=== PATIENT | female | born 1985 | race Hispanic/Latino ===

== ENCOUNTER 2024-02-08 02:23 | Emergency (ER) | payer OTHER, MEDICAID, SELFPAY ==
[2024-02-08] VITALS (14 sets, daily range): BP systolic 103–129; BP diastolic 55–69; PULSE 62–90; RESP 13–36; TEMP 36.7; O2SAT 97–100
--- NOTE | 2024-02-08 02:11 | ED.GENADULT ---
HPI - General Adult General Stated complaint: unresponsive x30min
--- NOTE | 2024-02-08 02:12 | ED_ITS ---
HPI - General Adult General Chief complaint: Altered Mental Status Stated complaint: unresponsive x30min History of Present Illness HPI narrative: (history via bedside Nauruan/[place]orese-speaking adult daughter, family declined use of professional medical translation services when offered) 38-year-old female brought in by EMS with altered mental status, patient had dental extraction 4pm today, local anesthetic, no sedation known to have happended with procedure, was discharged on ibuprofen only, while at [facility] cabin patient was walking up the stairs and complained of headache, had some shaking activity of her arms, stated that she felt numbness in her legs. EMS was called. Atypical shaking activity upper and lower extremities reported, no incontinence of urine or stool, no tonic-clonic like shaking activity, eyes closed, glucose 100s noted, no loss of airway, no emesis, maintaining airway. No known drug use. No recent illness symptoms before dental extraction. No medications new, has taken ibuprofen before without similar problems. No known history of shaking episodes, seizures, pseudoseizures, heart problems, adverse medication reactions, per family. No particular social stresses reported from family members. Visiting from home [facility]. Related Data Home Medications Medication Instructions Recorded Confirmed ferrous sulfate 325 mg (65 mg 325 mg PO DAILY 02/08/24 02/08/24 iron) tablet (FeroSul) ibuprofen 600 mg tablet 600 mg PO Q6-8H 02/08/24 02/08/24 Allergies Allergy/AdvReac Type Severity Reaction Status Date / Time No Known Drug Allergies Allergy Verified 02/08/24 02:57 Review of Systems Review of Systems Narrative: Limited by apparent altered mental status, see HPI Exam Narrative Exam Narrative: GENERAL: Well-developed patient, with altered mental status, intermittent atypical shaking/twitching movements upper and lower extermities HEAD: Atraumatic. Normocephalic. EYES: Pupils equal round and reactive. No scleral icterus. No injection or drainage. ENT: Nose without bleeding, purulent drainage. Throat without erythema, tonsillar hypertrophy or exudate. Airway patent. Handles secretions well, NECK: Trachea midline. Non tender CARDIOVASCULAR: Regular rate and rhythm without murmurs, gallops, or rubs. RESPIRATORY: Clear to auscultation. Breath sounds equal bilaterally. No wheezes, rales, or rhonchi. No difficulty with breathing, no use of accessory muscles or abdominal breathing. GASTROINTESTINAL: Abdomen soft, non-tender, nondistended. EXTREMITIES: No edema or joint tenderness. BACK: Nontender without deformity or crepitance. No flank tenderness. NEURO: Atypical intermittent shaking activity, sometimes upper extremities, sometimes lower extremities, not tonic-clonic in nature, asymmetrical, nonsustained, twitching like. Eyes closed, pupils equal, no obvious facial droop, no decorticate or decerebrate posturing. Maintaining airway. SKIN: No rash or erythema of visible areas Initial Vital Signs Initial Vital Signs: Vital Signs Temperature 98.0 F 02/08/24 02:13 Pulse Rate 90 02/08/24 02:13 Respiratory Rate 25 H 02/08/24 02:13 Blood Pressure 123/63 02/08/24 02:13 Pulse Oximetry 100 02/08/24 02:13 Oxygen Delivery Method Room Air 02/08/24 02:13 Course Orders Ordered: Discontinued Medications POTASSIUM CHLORIDE IN WATER (Potassium Cl 10 Meq/100 Ml Veronica) 10 meq in 100 mls @ 100 mls/hr IV Q1H ILIA Stop: 02/08/24 05:14 Last Infusion: 02/08/24 06:23 Dose: Infused Documented By: Infusion: 02/08/24 05:39 Dose: 50 mls/hr Documented By: Admin: 02/08/24 04:59 Dose: 100 mls/hr Documented By: Infusion: 02/08/24 04:45 Dose: Infused Documented By: Admin: 02/08/24 03:25 Dose: 100 mls/hr Documented By: AB Ceftriaxone Sodium 1,000 mg/ (Sodium Chloride) 100 mls @ 200 mls/hr IV NOW ONE Stop: 02/08/24 03:34 Last Infusion: 02/08/24 04:59 Dose: Infused Documented By: Admin: 02/08/24 04:26 Dose: 200 mls/hr Documented By: AB Sodium Chloride (Normal Saline 0.9%) 1,000 mls @ 1,000 mls/hr IV BOLUS ONE Stop: 02/08/24 04:33 Last Infusion: 02/08/24 05:39 Dose: Infused Documented By: Admin: 02/08/24 04:27 Dose: 1,000 mls/hr Documented By: AB Lorazepam (Lorazepam 2 Mg/Ml Inj) 1 mg IV NOW ONE Stop: 02/08/24 02:14 Last Admin: 02/08/24 02:15 Dose: 1 mg Documented By: ROLY Potassium Chloride (Potassium Chloride 20 Meq/15 Ml Udc) 40 meq PO NOW ONE Stop: 02/08/24 05:40 Last Admin: 02/08/24 06:13 Dose: 40 meq Documented By: AB Vital Signs Vital signs: Vital Signs - 8 hr 02/08/24 02:13 02/08/24 03:03 02/08/24 03:40 Temperature 98.0 F Pulse Rate 90 73 68 Respiratory Rate 25 H 18 Blood Pressure 123/63 Pulse Oximetry 100 99 Oxygen Delivery Method Room Air Room Air 02/08/24 03:42 02/08/24 03:42 02/08/24 04:00 Temperature Pulse Rate 71 Respiratory Rate 21 Blood Pressure 114/69 103/58 L Pulse Oximetry 100 Oxygen Delivery Method 02/08/24 04:00 02/08/24 04:30 02/08/24 04:30 Temperature Pulse Rate 66 67 Respiratory Rate 14 14 Blood Pressure 103/64 Pulse Oximetry 97 99 Oxygen Delivery Method 02/08/24 05:00 02/08/24 05:00 02/08/24 05:30 Temperature Pulse Rate 71 70 Respiratory Rate 26 H 17 Blood Pressure 105/55 L Pulse Oximetry 99 98 Oxygen Delivery Method 02/08/24 05:31 02/08/24 05:31 02/08/24 06:00 Temperature Pulse Rate 69 62 Respiratory Rate 36 H 13 Blood Pressure 123/67 Pulse Oximetry 99 98 Oxygen Delivery Method Room Air 02/08/24 06:00 02/08/24 06:30 02/08/24 06:30 Temperature Pulse Rate 66 Respiratory Rate 15 Blood Pressure 110/57 L 107/59 L Pulse Oximetry 99 Oxygen Delivery Method 02/08/24 07:00 02/08/24 07:01 02/08/24 07:01 Temperature Pulse Rate 78 82 Respiratory Rate 14 20 Blood Pressure 129/60 Pulse Oximetry 98 98 Oxygen Delivery Method Room Air Medical Decision Making Lab Data Lab results narrative: White blood cell count 6400, hemoglobin 9.8, platelets adequate. Glucose 117. Potassium 3.2 low. Serum CO2 22 not decreased. Normal renal function. Normal liver functions. Ethanol, acetaminophen, salicylate levels negative. Urine drug screen negative. Urinalysis pending 02/08/24 02:26 02/08/24 02:26 Labs: Lab Results 02/08/24 02/08/24 02/08/24 Range/Units 02:26 02:44 02:44 WBC 6.4 (4.5-11.0) X10^3/uL RBC 4.77 (4.0-5.2) X10^6/uL Hgb 9.8 L (12.0-16.0) g/dL Hct 31.1 L (36-46) % MCV 65.2 L (80-100) fL MCH 20.6 L (26-34) PG MCHC 31.6 (30-36) % RDW 22.6 H (11.6-14.8) % Plt Count 359 (150-400) X10^3/uL Neut % (Auto) 55.0 (50-75) % Lymph % (Auto) 34.4 (25-40) % Wilkinson % (Auto) 8.8 (3-14) % Eos % (Auto) 1.3 L (2-4) % Baso % (Auto) 0.5 (0-2) % Neut # (Auto) 3500 (1385-6780) /uL Lymph # (Auto) 2200 (2106-5777) /uL Wilkinson # (Auto) 600 (0-900) /uL Eos # (Auto) 100 (0-450) /uL Baso # (Auto) 0 (0-100) /uL Platelet Estimate Adequate on smear RBC Morphology See below Anisocytosis 2+ H Microcytosis 3+ H PT 10.8 (9.4-12.5) SECONDS INR 1.0 (0.9-1.3) APTT 29 (25.1-36.5) SECONDS Sodium 139 (137-145) mmol/L Potassium 3.2 L (3.4-5.1) mmol/L Chloride 105 (98-107) mmol/L Carbon Dioxide 22 (22-32) mmol/L BUN 7 (7-17) mg/dL Creatinine 0.66 (0.52-1.04) mg/dL Estimated GFR > 60 (>60) mL/min BUN/Creatinine Ratio 10.6 (6-22) Glucose 117 H (70-100) mg/dL Lactate 2.5 H (0.7-2.1) mmol/L Calcium 9.4 (8.4-10.2) mg/dL Magnesium 2.0 (1.6-2.3) mg/dL Total Bilirubin 0.4 (0.2-1.3) mg/dL AST 32 (14-36) IU/L ALT 24 (<35) IU/L Alkaline Phosphatase 87 (38-126) U/L Ammonia < 9 L (9-30) umol/L Total Protein 7.9 (6.3-8.2) g/dL Albumin 4.4 (3.5-5.0) g/dL Globulin 3.5 (1.7-4.1) g/dL Albumin/Globulin Ratio 1.3 (1.0-2.8) TSH 5.03 H (0.47-4.68) uIU/mL Prolactin 51.1 H (3.0-18.6) ng/mL HCG, Quant < 2.39 mIU/mL Urine Color Yellow Urine Appearance Sl cloudy Urine pH 6.0 Normal (4.5-8.0) Ur Specific [place] <=1.005 (1.000-1.035) Urine Protein Negative (Negative) Urine Glucose (UA) Negative (Negative) g/dL Urine Ketones Negative (NEGATIVE) Urine Occult Blood Negative (Negative) Urine Nitrate Positive H (Negative) Urine Bilirubin Negative (NEGATIVE) Urine Urobilinogen 0.2 (0.2) E.U./dL Ur Leukocyte Esterase 1+ H (NEGATIVE) Urine RBC None seen (0-5/HPF) Urine WBC 5-10/hpf H (0-5/HPF) Ur Squamous Epith Cells 5-10 /hpf H (0-5/HPF) Urine Bacteria Many (>30) H (None) Urine Mucus 1+ H (Negative) Ur Culture Indicated? Cult not indicated Vol Urine Centrifuged 10ml (spun) Salicylates < 1.0 (<20) mg/dL U Opiates 300ng/mL cut Negative (Negative) Ur Oxycodone Screen Negative (Negative) Urine Methadone Screen Negative (Negative) Acetaminophen < 10 (10-30) ug/mL Ur Barbiturates Screen Negative (Negative) U Tricyclic Antidepress Negative (Negative) Ur Phencyclidine Scrn Negative (Negative) Ur Amphetamines Screen Negative (Negative) U Methamphetamines Scrn Negative (Negative) Ur MDMA Scrn (Ecstasy) Negative (Negative) U Benzodiazepines Scrn Negative (Negative) Urine Cocaine Screen Negative (Negative) U Marijuana (THC) Screen Negative (Negative) Urine Specific [place] Normal (Normal) Ethyl Alcohol < 10 ( - 10) mg/dL Ur Creatinine Normal (Normal) 02/08/24 Range/Units 06:20 WBC (4.5-11.0) X10^3/uL RBC (4.0-5.2) X10^6/uL Hgb (12.0-16.0) g/dL Hct (36-46) % MCV (80-100) fL MCH (26-34) PG MCHC (30-36) % RDW (11.6-14.8) % Plt Count (150-400) X10^3/uL Neut % (Auto) (50-75) % Lymph % (Auto) (25-40) % Wilkinson % (Auto) (3-14) % Eos % (Auto) (2-4) % Baso % (Auto) (0-2) % Neut # (Auto) (7192-5013) /uL Lymph # (Auto) (8125-8423) /uL Wilkinson # (Auto) (0-900) /uL Eos # (Auto) (0-450) /uL Baso # (Auto) (0-100) /uL Platelet Estimate RBC Morphology Anisocytosis Microcytosis PT (9.4-12.5) SECONDS INR (0.9-1.3) APTT (25.1-36.5) SECONDS Sodium (137-145) mmol/L Potassium (3.4-5.1) mmol/L Chloride (98-107) mmol/L Carbon Dioxide (22-32) mmol/L BUN (7-17) mg/dL Creatinine (0.52-1.04) mg/dL Estimated GFR (>60) mL/min BUN/Creatinine Ratio (6-22) Glucose (70-100) mg/dL Lactate 0.7 (0.7-2.1) mmol/L Calcium (8.4-10.2) mg/dL Magnesium (1.6-2.3) mg/dL Total Bilirubin (0.2-1.3) mg/dL AST (14-36) IU/L ALT (<35) IU/L Alkaline Phosphatase (38-126) U/L Ammonia (9-30) umol/L Total Protein (6.3-8.2) g/dL Albumin (3.5-5.0) g/dL Globulin (1.7-4.1) g/dL Albumin/Globulin Ratio (1.0-2.8) TSH (0.47-4.68) uIU/mL Prolactin (3.0-18.6) ng/mL HCG, Quant mIU/mL Urine Color Urine Appearance Urine pH (4.5-8.0) Ur Specific [place] (1.000-1.035) Urine Protein (Negative) Urine Glucose (UA) (Negative) g/dL Urine Ketones (NEGATIVE) Urine Occult Blood (Negative) Urine Nitrate (Negative) Urine Bilirubin (NEGATIVE) Urine Urobilinogen (0.2) E.U./dL Ur Leukocyte Esterase (NEGATIVE) Urine RBC (0-5/HPF) Urine WBC (0-5/HPF) Ur Squamous Epith Cells (0-5/HPF) Urine Bacteria (None) Urine Mucus (Negative) Ur Culture Indicated? Vol Urine Centrifuged Salicylates (<20) mg/dL U Opiates 300ng/mL cut (Negative) Ur Oxycodone Screen (Negative) Urine Methadone Screen (Negative) Acetaminophen (10-30) ug/mL Ur Barbiturates Screen (Negative) U Tricyclic Antidepress (Negative) Ur Phencyclidine Scrn (Negative) Ur Amphetamines Screen (Negative) U Methamphetamines Scrn (Negative) Ur MDMA Scrn (Ecstasy) (Negative) U Benzodiazepines Scrn (Negative) Urine Cocaine Screen (Negative) U Marijuana (THC) Screen (Negative) Urine Specific [place] (Normal) Ethyl Alcohol ( - 10) mg/dL Ur Creatinine (Normal) ECG Data Attestation: I personally reviewed and interpreted this ECG as follows: Interpretation: Normal sinus rhythm with rate of 80, no obvious ST segment elevation or depression changes. SC 146, QRS 90, QTC 463. MDM Narrative Medical decision making narrative: 38-year-old female status post dental procedure this afternoon, with altered mental status and atypical shaking/twitching like movements upper and lower extermities that appear to be variable in combination upper vs lower extemities, non clonic tonic, reported glucose normal by EMS, no BDZ antiseizure medication given during transport, maintaining airway, eyes closed, handling secretions well, no posturing. No obvious face neck cranial trauma, no obvious truncal trauma. CT head, EKG, repeat fingerstick glucose, CBC, CMP, serum hCG, acetaminophen level, salicylate level, ethanol level, urinalysis, lactate requested. IV Ativan 1 mg for now. Keep NPO. DDx consider intracerebral hemorrhage, stroke, pseudoseizures, conversion reaction, epileptiform seizures, non epileptiform seizures, medication reaction, dystonic reaction, toxidrome, infection, other. Potassium 3.2, IV repletion while NPO. Prolactin level increased, serum CO2 not decreased, lactate mildly increased. CT head noncontrast study ordered. White blood cell count not elevated. Urine drug screen negative. HCG negative. Ethanol, salicylate, acetaminophen levels negative. CT head noncontrast showed no acute intracranial abnormality. See teleradiology report. Patient more alert, no further shaking, oral potassium also given. Repeat lactic acid after IV infusions pending. Repeat lactate normalized. No further shaking activity during ED evaluation. Advised follow up Saturday with PCP for repeat potassium testing. Consider Neurology consultation other workup as an outpatient for now. Return precautions discussed. Stable, improved, home with family Discharge Plan Departure Patient Disposition: Home Clinical Impression: Altered mental status, Jerking movements of extremities, Hypokalemia Activity Restrictions/Additional Instructions: Altered mental status of unclear cause, jerking motions to the extremities and torso, but not typical for epilepsy/seizure. Recent dental procedure noted, taking postprocedure ibuprofen for pain control. Unclear if shaking episode could have been due to any medication reaction after dental procedure. CT scan of the head/brain showed no acute changes. Lab testing showed low potassium level. Follow up in your home area [place]. Further workup as an outpatient for now, if neurology consultation and other follow up might be indicated. No seizure medications for now. Consider recheck of your potassium level early next week with your regular doctor. Return to this/nearest emergency department for any change worsening symptoms or any concerns prior Prescriptions: No Action ibuprofen 600 mg tablet 600 mg PO Q6-8H ferrous sulfate [FeroSul] 325 mg (65 mg iron) tablet 325 mg PO DAILY Stand Alone Forms: Patient Portal/API/Survey
[2024-02-08] MEDS: LORazepam 2 MG/ML INJ 1 MG IV (02:15)
--- NOTE | 2024-02-08 02:18 | EKG_ITS ---
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
--- NOTE | 2024-02-08 02:27 | DI.CT.S_ITS ---
PROCEDURE: CT HEAD/BRAIN WO CON INDICATIONS: alt MSE TECHNIQUE: Noncontrast 4.5 mm thick angled axial sections acquired from the foramen magnum to the vertex, with coronal and sagittal reformats. For radiation dose reduction, the following was used: automated exposure control, adjustment of mA and/or kV according to patient size. COMPARISON: None. FINDINGS: Image quality: Diagnostic. CSF spaces: Basal cisterns are patent. No extra-axial fluid collections. Ventricles are normal in size and shape. Brain: No midline shift. No intracranial masses or hemorrhage. Collazo-white matter interface is normal. Skull and face: Calvarium and visualized facial bones are intact, without suspicious lesions. Sinuses: Visualized sinuses and mastoids are clear. IMPRESSION: No acute intracranial pathology. Note: No significant discrepancy from the preliminary report. Dictated by: Gray Jackson M.D. on 02/08/2024 at 6:51 Approved by: Gray Jackson M.D. on 02/08/2024 at 6:52
[2024-02-08 02:52] LABS: Add Manual Diff / Slide Review NO; Basophils Absolute Auto 0 /uL (0-100); Basophils Percent Auto 0.5 % (0-2); Eosinophils Absolute Auto 100 /uL (0-450); Eosinophils Percent Auto 1.3 % (2-4); Hematocrit 31.1 % (36-46); Hemoglobin 9.8 g/dL (12.0-16.0); Lymphocytes Absolute Auto 2200 /uL (1100-4500); Lymphocytes Percent Auto 34.4 % (25-40); Mean Corpuscular HGB Conc 31.6 % (30-36); Mean Corpuscular Hemoglobin 20.6 PG (26-34); Mean Corpuscular Volume 65.2 fL (80-100); Monocytes Absolute Auto 600 /uL (0-900); Monocytes Percent Auto 8.8 % (3-14); Neutrophils Absolute Auto 3500 /uL (1500-7000); Platelet Count 359 X10^3/uL (150-400); Red Blood Cell Count 4.77 X10^6/uL (4.0-5.2); Red Cell Distribution Width 22.6 % (11.6-14.8); White Blood Cell Count 6.4 X10^3/uL (4.5-11.0)
--- NOTE | 2024-02-08 02:53 | PC.NURSE ---
Left eye - right inner most part of cornea has a opaque type film covering it does not move with pt eyes move.
[2024-02-08 02:55] LABS: Appearance Urine UA SL CLOUDY; Bilirubin Urine UA NEGATIVE (NEGATIVE); Color Urine UA YELLOW; Glucose Urine UA NEGATIVE (Negative); Ketones Urine UA NEGATIVE (NEGATIVE); Leukocyte Esterase Urine UA 1+ (NEGATIVE); Nitrite Urine UA POSITIVE (Negative); Occult Blood Urine UA NEGATIVE (Negative); Protein Urine UA NEGATIVE (Negative); Specific Gravity Urine UA <=1.005 (1.000-1.035); Urobilinogen Urine UA 0.2 E.U./dL (0.2)
[2024-02-08 02:55] LABS: Prothrombin Time 10.8 SECONDS (9.4-12.5)
--- NOTE | 2024-02-08 02:55 | PC.NURSE ---
Unable to complete a full neuro assessment, pt speak is garbled with no discernable clear words in swedish or lithuanian. Pt does respond to this nurse with nodding of head after asking her name (in lithuanian).
[2024-02-08 02:58] LABS: UR Morphine/Opiate cutoff 300 Negative (Negative); Ur Creatinine Normal (Normal); Ur Specific Gravity Normal (Normal); Urine Amphetamines Negative (Negative); Urine Barbiturates Negative (Negative); Urine Benzodiazepines Negative (Negative); Urine Cocaine Negative (Negative); Urine MDMA Negative (Negative); Urine Methadone Negative (Negative); Urine Methamphetamines Negative (Negative); Urine Oxycodone Negative (Negative); Urine Phencyclidine Negative (Negative); Urine Tetrahydrocannabinol Negative (Negative); Urine Tricyclic Antidepressant Negative (Negative); Urine pH Normal (Normal)
[2024-02-08 02:58] LABS: PTT Partial Thromboplastin Tim 29 SECONDS (25.1-36.5)
[2024-02-08 03:05] LABS: Acetaminophen < 10 ug/mL (10-30); Alanine Aminotransferase 24 IU/L (<35); Albumin 4.4 g/dL (3.5-5.0); Albumin Globulin Ratio 1.3 (1.0-2.8); Alkaline Phosphatase 87 U/L (38-126); Ammonia (NH3) < 9 umol/L (9-30); Aspartate Aminotransferase 32 IU/L (14-36); BUN Creatinine Ratio 10.6 (6-22); Bilirubin Total 0.4 mg/dL (0.2-1.3); Blood Urea Nitrogen 7 mg/dL (7-17); Calcium 9.4 mg/dL (8.4-10.2); Carbon Dioxide 22 mmol/L (22-32); Chloride 105 mmol/L (98-107); Estimated Glomerular Filt Rate > 60 mL/min (>60); Ethanol (ETOH) < 10 mg/dL; Globulin 3.5 g/dL (1.7-4.1); Glucose 117 mg/dL (70-100); HEMOLYSIS < 15 (0-50); Lactate (Lactic Acid) 2.5 mmol/L (0.7-2.1); Potassium 3.2 mmol/L (3.4-5.1); Salicylate < 1.0 mg/dL (<20); Sodium 139 mmol/L (137-145); Total Protein 7.9 g/dL (6.3-8.2)
[2024-02-08 03:13] LABS: Bacteria Urine Many (>30); RBC Urine None Seen (0-5/HPF); Squamous Epithelial Cell Urine 5-10 /HPF (0-5/HPF); Urine Volume 10mL (spun); WBC Urine 5-10/HPF (0-5/HPF)
[2024-02-08 03:14] LABS: Culture Indicated Urine Cult Not Indicated; Mucus Urine 1+ (Negative)
[2024-02-08 03:18] LABS: Anisocytosis 2+; Microcytosis 3+; Platelet Estimate Adequate on smear
[2024-02-08 03:21] LABS: Prolactin 51.1 ng/mL (3.0-18.6)
[2024-02-08] MEDS: POTASSIUM CHLORIDE IN WATER 10 MEQ/100 ML PIGGYBACK 100 MEQ IV ×2 (03:25→04:59)
[2024-02-08 03:34] LABS: HCG Quantitative /Beta subunit < 2.39 mIU/mL
[2024-02-08 03:47] LABS: Thyroid Stimulating Hormone 5.03 uIU/mL (0.47-4.68)
[2024-02-08 04:17] LABS: Reflexed Lactate in 2 Hours Y
[2024-02-08] MEDS: cefTRIAXone 1,000 MG in SODIUM CHLORIDE 0.9% 100 ML 200 MG IV (04:26)
[2024-02-08] MEDS: SODIUM CHLORIDE 0.9% 1,000 ML 1000 ML IV (04:27)
[2024-02-08] MEDS: POTASSIUM CHLORIDE 20 MEQ/15 ML UDC 40 MEQ PO (06:13)
--- NOTE | 2024-02-08 06:24 | PC.NURSE ---
Oral potassium mixed with orange juice. Gave pt a lemon-[place] soda for after oral potassium.
[2024-02-08 06:35] LABS: Lactate 2HR (Lactic Acid Rflx) 0.7 mmol/L (0.7-2.1)
--- NOTE | 2024-02-08 07:07 | PC.NURSE ---
Pt improved, currently cleaning up and getting dressed to ambulate to bathroom and trial ambulation.
[2024-02-10 19:07] LABS: Osmolality, Serum 289 mOsmol/kg (275-295)
== END 2024-02-08 07:44 | disposition home or self-care (01) ==
PROVIDERS: Emergency Provider Emergency Medicine
DX: R41.82 Altered mental status, unspecified (principal); R25.2 Cramp and spasm; E87.6 Hypokalemia; R07.9 Chest pain, unspecified
CPT/HCPCS: 36415; 51701; 70450; 80053; 80305; 80320; 80329; 81001; 82140; 83605; 83735; 83930; 84146; 84443; 84702; 85025; 85610; 85730; 87040; 87077; 87086; 87186; 93005; 96365; 96366; 96368; 96375; 99284; 99285; G0480; J0696; J2060